=== PATIENT | male | born 1995 | race Caucasian/White ===

== ENCOUNTER 2020-08-31 18:44 | Observation (INO) | payer OTHER ==
[2020-08-30 22:15] VITALS: BP 117/66; PULSE 69
[~2020-08-31] VITALS: Ht 170.2 cm; Wt 87.6 kg
[2020-08-31] VITALS (15 sets, daily range): BP systolic 117–125; BP diastolic 64–66; PULSE 55–69; TEMP 97.8; O2SAT 98–100
[2020-08-31 19:18] LABS: BASO % 0.5 % (0.0-2.0); EOS # 0.1 (0.0-0.7); EOS % 1.8 % (0-4.0); GRAN % 59.8 % (42.2-75.2); HEMATOCRIT 41.1 % (42.0-52.0); LYMPH % 30.2 % (20.0-51.0); MEAN CELL VOLUME 87 fl (80.0-100.0); MEAN CORPUSCULAR HEMOGLOBIN 30 pg (27.0-31.0); MEAN CORPUSCULAR HGB CONC 34 g/dl (33.0-37.0); MEAN PLATELET VOLUME 10.7 fl (7.4-10.4); MONO # 0.5 (0.1-0.6); MONO % 7.4 % (1.7-9.3); PLATELET COUNT 201 K/mm3 (130-400); RED BLOOD COUNT 4.73 M/mm3 (4.20-5.60); REDCELL DISTRIBUTION WIDTH-CV 12.5 % (11.5-14.5)
[2020-08-31 19:31] LABS: COLLECTION METHOD CLEAN CATCH
[2020-08-31 19:32] LABS: ALANINE AMINOTRANSFERASE 41 U/L (4-49); ALBUMIN 4.4 gm/dL (3.5-5.0); ALKALINE PHOSPHATASE 61 U/L (50-136); ANION GAP 9 mmol/L (7-16); AST,SGOT 44 U/L (15-37); BILIRUBIN,TOTAL 0.8 mg/dL (0.0-1.0); BLOOD UREA NITROGEN 23 mg/dL (9-20); CALCIUM 8.8 mg/dL (8.4-10.2); CARBON DIOXIDE 24 mmol/L (22-30); CHLORIDE 105 mmol/L (98-107); CREATININE, serum 1.05 (0.66-1.25); GLUCOSE 127 mg/dL (74-106); POTASSIUM 3.4 mmol/L (3.4-5.0); SODIUM 137 mmol/L (137-145); TOTAL PROTEIN 7.2 gm/dL (6.4-8.2)
[2020-08-31 19:34] LABS: ACETAMINOPHEN < 10 ug/mL (10-30); ALCOHOL(ethanol),MEDICAL < 10 mg/dL; SALICYLATE < 1.0 mg/dL
[2020-08-31 19:36] LABS: MUCOUS Present /lpf; PH 6 (5-8); SQUAMOUS EPITHELIAL None Seen /hpf; URINE APPEARANCE Clear; URINE BACTERIA None Seen /hpf; URINE BILIRUBIN Negative (NEGATIVE); URINE BLOOD Negative (NEGATIVE); URINE COLOR Yellow; URINE GLUCOSE Negative (NEGATIVE); URINE KETONE Negative (NEGATIVE); URINE LEUKOCYTE ESTERASE Negative (NEGATIVE); URINE NITRATE Negative (NEGATIVE); URINE PROTEIN(semi-quant) Negative (NEGATIVE); URINE RBC None Seen /hpf; URINE UROBILINOGEN Negative (NEGATIVE)
[2020-08-31 20:09] LABS: TRICYCLIC ANTIDEPRESS URINE NEGATIVE
--- NOTE | 2020-08-31 22:30 | NUR ---
Patient has been alert and oriented X 4; does not appear drowsy. Denies any dizziness or nausea at this time. Patient is cooperative with staff and has been forthcoming with quesions regarding his suicide attempt and past struggles with anxiety and depression. Reports has an appointment with his new therapist this Thursday. Patient does have cell phone with him. Reports he has been in contact with his girlfriend who is a good support system. This nurse stated that he could keep his cell phone with him, however, if it appears to cause any anxiety or other cause for concern, nursing staff reserves the right to remove it from the room; Patient understanding. Explained that we would be closely monitoring his cardiac rhythm and electrolytes until medically cleared. Patient agreeable with plan of care.
[2020-09-01] VITALS (577 sets, daily range): BP systolic 93–128; BP diastolic 50–91; PULSE 51–64; TEMP 97.6–97.8; O2SAT 83–100
[2020-09-01 01:24] LABS: CALCIUM 8.8 mg/dL (8.4-10.2); CREATININE, serum 1.05 (0.66-1.25); POTASSIUM 4.8 mmol/L (3.4-5.0)
--- NOTE | 2020-09-01 02:00 | NUR ---
Potassium currenlty after 4.8 on latest BMP. Patient currently getting IV potassium replacement. Has received 60 meq at time of blood draw. Hospitalist notified; will stop replacment at this time.
--- NOTE | 2020-09-01 05:00 | NUR ---
Discussed patient status with Haresh from poison control. States that we can discontinue q2hr EKG's at this time. Hospitalist notified and agrees to stop the serial EKG's. RT nofitied.
[2020-09-01 05:03] LABS: BASO % 0.4 % (0.0-2.0); EOS # 0.1 (0.0-0.7); EOS % 1.7 % (0-4.0); GRAN # 3.6 (1.4-6.5); GRAN % 51.5 % (42.2-75.2); HEMATOCRIT 40.3 % (42.0-52.0); HEMOGLOBIN 13.6 g/dl (13.5-18.0); LYMPH # 2.5 (1.2-3.4); LYMPH % 35.8 % (20.0-51.0); MEAN CELL VOLUME 88 fl (80.0-100.0); MEAN CORPUSCULAR HEMOGLOBIN 30 pg (27.0-31.0); MEAN CORPUSCULAR HGB CONC 34 g/dl (33.0-37.0); MEAN PLATELET VOLUME 10.8 fl (7.4-10.4); MONO # 0.7 (0.1-0.6); MONO % 10.3 % (1.7-9.3); PLATELET COUNT 223 K/mm3 (130-400); RED BLOOD COUNT 4.57 M/mm3 (4.20-5.60); REDCELL DISTRIBUTION WIDTH-CV 12.8 % (11.5-14.5)
[2020-09-01 05:13] LABS: ALBUMIN 3.9 gm/dL (3.5-5.0); BILIRUBIN,TOTAL 0.8 mg/dL (0.0-1.0); CALCIUM 8.5 mg/dL (8.4-10.2); CREATININE, serum 1.09 (0.66-1.25); POTASSIUM 4.4 mmol/L (3.4-5.0); TOTAL PROTEIN 6.6 gm/dL (6.4-8.2)
--- NOTE | 2020-09-01 05:15 | NUR ---
Patient sleeps between disturbances. Awake after lab draw. Denies any concerns or complaints at this time. Call light left within reach; will continue to monitor.
--- NOTE | 2020-09-01 07:20 | NUR ---
Report given to BACILIO Lozada. Patient care transfered.
--- NOTE | 2020-09-01 08:28 | NUR ---
Pt pleasant and cooperative during assessment. Inquiring about plan for the day and psych screening process. Questions answered. POC discussed for today. Pt able to recall all changes in treatment up to this point. Denies any complaints at this time.
--- NOTE | 2020-09-01 09:00 | NUR ---
Called Poison Control at [phone] and spoke with Stefan. Received the okay to proceed with a general diet, per Dr. No's request. Case has been closed on [facility] side due to no further recommendations or change in treatment plans. Verified that VSS.
--- NOTE | 2020-09-01 14:00 | NUR ---
Pt has been cleared following psych eval.
--- NOTE | 2020-09-01 15:25 | NUR ---
Reviewed discharge packet with pt. Provided personal belongings. Took last set of VS and once pt is dressed the IV will be removed.
--- NOTE | 2020-09-01 15:26 | NUR ---
Called pts girlfrienreyna Carpio to notify that pt has been discharged. Instructions provided to come to the ED entrance and notify the screener who will then notify this nurse of her arrival. Screener notified of plan as well.
--- NOTE | 2020-09-01 15:45 | NUR ---
Pt walked out, with a steady gait, no c/o dizziness, to ED entrance where girlfriend was waiting to take home. Pt had discharge folder in hand with all noted personal belongings. Room stripped down, no observed personal belongings left behind.
--- NOTE | 2020-09-01 16:07 | NUR ---
Plan to return home with GF, if Lilia Screen Okay. Patient reports that he resides locally with [place] . Patient denies having any DME use or needing any long-term services. Patient denies having a DPOA and does not list a PCP. Patient reports that he does have an upcoming appointment with Dr. Isidoro Rios for [facility]. Patient shares that he uses [facility] for RX and can obtain them without difficulty. Patient denies needing any further assistance to DC at this time. GF will provide transportation. Declines any needs for pt.ot.spt. Educated on resources. Nothing follows.
== END 2020-09-01 15:45 | disposition home or self-care (01) ==
LOC: COL.ER 18:44 → ICU 20:04
PROVIDERS: Emergency Medicine; Nurse Practitioner Family; ADMIT Student in an Organized Health Care Education/Training Program
DX: T43.212A Poisoning by selective serotonin and norepinephrine reuptake inhibitors, intentional self-harm, initial encounter (principal); E87.6 Hypokalemia; R00.1 Bradycardia, unspecified; F41.1 Generalized anxiety disorder; F33.41 Major depressive disorder, recurrent, in partial remission; T43.216A Underdosing of selective serotonin and norepinephrine reuptake inhibitors, initial encounter; T43.296A Underdosing of other antidepressants, initial encounter; Z91.128 Patient's intentional underdosing of medication regimen for other reason
CPT/HCPCS: 99239; C9113; G0378; J1650; J3480; J7030

== ENCOUNTER 2021-01-03 11:13 | Emergency (ER) | payer OTHER ==
[~2021-01-03] VITALS: Ht 170.2 cm; Wt 97.7 kg
[2021-01-03 11:31] VITALS: TEMP 98
[2021-01-03] MEDS ORDERED: FLEXERIL 1010 MG/TAB PO (13:10)
[2021-01-03 13:17] VITALS: BP 129/79; PULSE 78
== END 2021-01-03 13:23 | disposition home or self-care (01) ==
LOC: COL.ER 11:13
DX: S16.1XXA Strain of muscle, fascia and tendon at neck level, initial encounter (principal); S06.0X1A Concussion with loss of consciousness of 30 minutes or less, initial encounter; V89.2XXA Person injured in unspecified motor-vehicle accident, traffic, initial encounter
CPT/HCPCS: J1885